=== PATIENT | female | born 1980 | race American Indian/Alaskan Native ===

== ENCOUNTER 2019-03-03 10:53 | Emergency (ER) | payer SELFPAY ==
[2019-03-03 11:23] VITALS: BP 139/91
--- NOTE | 2019-03-03 12:25 | Emergency Department Report ---
- General Chief Complaint: Upper Respiratory Infection Stated Complaint: HEADACHE/CHEST PAIN/COUGH/VOMITING/NAUSEA Time Seen by Provider: 03/03/19 12:19 Source: patient Mode of arrival: Ambulatory Limitations: No Limitations - History of Present Illness Initial Comments: Patient is a 38-year-old female with no significant past medical history. Patient presented to the ER complaining of cough, productive for greenish sputum. Patient stated the symptoms has been going on for 2 weeks. Patient denied any fever or chills. No shortness of breath or wheezing. MD Complaint: cough -: week(s) (2) - Related Data Allergies Allergy/AdvReac Type Severity Reaction Status Date / Time No Known Allergies Allergy Unverified 03/03/19 10:55 ED Review of Systems ROS: Stated complaint: HEADACHE/CHEST PAIN/COUGH/VOMITING/NAUSEA Other details as noted in HPI Comment: All other systems reviewed and negative Constitutional: denies: chills, fever Respiratory: cough. denies: shortness of breath, SOB with exertion, wheezing Cardiovascular: denies: chest pain, palpitations Gastrointestinal: denies: abdominal pain, nausea, vomiting ED Past Medical Hx - Past Medical History Previous Medical History?: No Hx Hypertension: No Hx Asthma: No - Surgical History Past Surgical History?: No - Social History Smoking Status: Never Smoker Substance Use Type: Alcohol ED Physical Exam - General Limitations: No Limitations General appearance: alert, in no apparent distress - Head Head exam: Present: atraumatic, normocephalic, normal inspection - Eye Eye exam: Present: normal appearance - ENT ENT exam: Present: normal exam, normal orophraynx, mucous membranes moist - Neck Neck exam: Present: normal inspection, full ROM. Absent: tenderness, meningismus, lymphadenopathy, thyromegaly - Respiratory Respiratory exam: Present: normal lung sounds bilaterally - Cardiovascular Cardiovascular Exam: Present: regular rate, normal rhythm, normal heart sounds - GI/Abdominal GI/Abdominal exam: Present: soft, normal bowel sounds. Absent: distended, tenderness, guarding, rebound, rigid, organomegaly, mass, bruit, pulsatile mass, hernia - Extremities Exam Extremities exam: Present: normal inspection, full ROM, normal capillary refill. Absent: tenderness, pedal edema, calf tenderness - Back Exam Back exam: Present: normal inspection, full ROM. Absent: tenderness, CVA tenderness (R), CVA tenderness (L), muscle spasm, paraspinal tenderness, vertebral tenderness, rash noted - Neurological Exam Neurological exam: Present: alert, oriented X3, CN II-XII intact, normal gait, reflexes normal - Psychiatric Psychiatric exam: Present: normal mood - Skin Skin exam: Present: warm, intact, normal color ED Course Vital Signs 03/03/19 11:21 Temperature 98.3 F Pulse Rate 89 Respiratory 20 Rate Blood Pressure 139/91 O2 Sat by Pulse 99 Oximetry ED Medical Decision Making - Radiology Data Radiology results: report reviewed - Medical Decision Making Patient is a 38-year-old female with no significant past medical history. Patient presented to the ER complaining of cough, productive for greenish sputum. Patient stated the symptoms has been going on for 2 weeks. Patient denied any fever or chills. No shortness of breath or wheezing. Chest x-ray is unremarkable. Patient given amoxicillin and Robitussin and advised to follow-up with her primary care physician in the next 2-3 days and to retained to the ER if symptoms are not improved. Critical care attestation.: If time is entered above; I have spent that time in minutes in the direct care of this critically ill patient, excluding procedure time. ED Disposition Clinical Impression: Acute bronchitis Disposition: DC-01 TO HOME OR SELFCARE Is pt being admited?: No Condition: Stable Instructions: Acute Bronchitis (ED) Referrals: PRIMARY CARE [Primary Care Provider] - 3-5 Days [facility] [Provider Group] - 3-5 Days
--- NOTE | 2019-03-03 12:58 | XRay Report ---
CHEST 2 VIEWS INDICATION: cough. COMPARISON: None FINDINGS: Support devices: None. Heart: Within normal limits. Lungs/pleura: No acute air space or interstitial disease. No pneumothorax. Additional findings: None. IMPRESSION: 1. No acute findings. Signer Name: Quinn Muñoz MD Signed: 03/03/2019 12:54 PM Workstation Name: [id number]
== END 2019-03-03 13:35 | disposition home or self-care (01) ==
LOC: ED 10:53
DX: J20.9 Acute bronchitis, unspecified (principal)
CPT/HCPCS: 71046; 99282

== ENCOUNTER 2020-12-19 01:14 | Emergency (ER) | payer SELFPAY ==
[2020-12-19] MEDS ORDERED: ASPIRIN 325 MG TAB PO ONE (02:43)
[2020-12-19 03:11] LABS: Basophils % (Auto) 0.5 % (0.0-1.8); Eosinophils # (Auto) 0.2 K/mm3 (0.0-0.4); Eosinophils % (Auto) 2.4 % (0.0-4.3); Hematocrit 36.4 % (30.3-42.9); Hemoglobin 12.3 gm/dl (10.1-14.3); Lymphocytes # (Auto) 3.3 K/mm3 (1.2-5.4); Lymphocytes % (Auto) 39.6 % (13.4-35.0); Mean Corpuscular HGB Conc 34 % (30-34); Mean Corpuscular Volume 81 fl (79-97); Monocytes # (Auto) 0.6 K/mm3 (0.0-0.8); Monocytes % (Auto) 6.7 % (0.0-7.3); Platelet Count 221 K/mm3 (140-440); Red Blood Count 4.48 M/mm3 (3.65-5.03); Red Cell Distribution Width 14.6 % (13.2-15.2)
--- NOTE | 2020-12-19 03:29 | Emergency Department Report ---
ED Chest Pain HPI - General Chief Complaint: Chest Pain Stated Complaint: HIGH BP PUI?: No Time Seen by Provider: 12/19/20 03:22 Source: patient Mode of arrival: Ambulatory Limitations: No Limitations - History of Present Illness Initial Comments: Patient is a 40-year-old female that presents emergency room with complaints of chest pain. Patient states her chest pain started a week ago. Patient states the pain is worsening. Patient states that her sister checked her blood pressure and it was high. Patient states she is just not who is greater than 164 systolic. Patient denies shortness of breath. Patient states the chest pain is in her upper chest and is bilateral. Patient dates pain is better with rest. Patient states the pain is worse with palpation and deep breath and movement. Patient denies fever and chills. Patient states that the chest pain is a 7 out of 10. Patient states the pain is nonradiating. Patient denies shortness of breath. Patient denies fever and chills. Patient denies cough. Patient denies recent travel. Patient denies recent international travel. Patient denies exposure to the novel coronavirus. Patient denies sick contacts. Patient denies fever and chills. Patient denies cough. Patient denies diarrhea. Patient denies coming in contact with anybody with symptoms of the novel coronavirus. MD Complaint: chest pain -: Sudden - Related Data Previous Rx's Medication Instructions Recorded Last Taken Type Albuterol Mdi (or & Nicu Only) 2 puff IH QID PRN #1 inhalation 03/03/19 Unknown Rx [ProAir HFA Inhaler] Amoxicillin [Amoxicillin TAB] 875 mg PO BID #14 tablet 03/03/19 Unknown Rx guaiFENesin [Robitussin] 5 ml PO TID PRN #100 ml 03/03/19 Unknown Rx Amoxicillin/Potassium Clav 1 each PO BID #20 tablet 03/29/19 Unknown Rx [Augmentin 875-125 Tablet] Fluticasone [Flonase] 1 spray NS QDAY #1 bottle 03/29/19 Unknown Rx Allergies Allergy/AdvReac Type Severity Reaction Status Date / Time No Known Allergies Allergy Verified 12/19/20 03:59 Heart Score - HEART Score History: Slightly suspicious EKG: Normal Age: < 45 Risk factors: No known risk factors Troponin: < normal limit HEART Score: 0 - EKG Read Time Time EKG Completed: 02:45 EKG Read Time: 02:49 ED Review of Systems ROS: Stated complaint: HIGH BP Other details as noted in HPI Constitutional: denies: chills, fever Eyes: denies: eye pain, eye discharge, vision change ENT: denies: ear pain, throat pain Respiratory: denies: cough, shortness of breath, wheezing Cardiovascular: as per HPI, chest pain. denies: palpitations Endocrine: no symptoms reported Gastrointestinal: denies: abdominal pain, nausea, diarrhea Genitourinary: denies: urgency, dysuria, discharge Musculoskeletal: denies: back pain, joint swelling, arthralgia Skin: denies: rash, lesions Neurological: denies: headache, weakness, paresthesias Psychiatric: denies: anxiety, depression Hematological/Lymphatic: denies: easy bleeding, easy bruising ED Past Medical Hx - Past Medical History Previous Medical History?: Yes Hx Hypertension: Yes Hx Asthma: No - Surgical History Past Surgical History?: No - Family History Family history: no significant - Social History Smoking Status: Current Every Day Smoker Substance Use Type: None - Medications Home Medications: Home Medications Medication Instructions Recorded Confirmed Last Taken Type Albuterol Mdi (or & Nicu Only) 2 puff IH QID PRN #1 inhalation 03/03/19 Unknown Rx [ProAir HFA Inhaler] Amoxicillin [Amoxicillin TAB] 875 mg PO BID #14 tablet 03/03/19 Unknown Rx guaiFENesin [Robitussin] 5 ml PO TID PRN #100 ml 03/03/19 Unknown Rx Amoxicillin/Potassium Clav 1 each PO BID #20 tablet 03/29/19 Unknown Rx [Augmentin 875-125 Tablet] Fluticasone [Flonase] 1 spray NS QDAY #1 bottle 03/29/19 Unknown Rx ED Physical Exam - General Limitations: No Limitations General appearance: alert, in no apparent distress - Head Head exam: Present: atraumatic, normocephalic - Eye Eye exam: Present: normal appearance - ENT ENT exam: Present: mucous membranes moist - Neck Neck exam: Present: normal inspection - Respiratory Respiratory exam: Present: normal lung sounds bilaterally, chest wall tenderness (Palpation of the upper chest wall reproduces symptoms. Patient has tenderness to the bilateral upper chest.). Absent: respiratory distress - Cardiovascular Cardiovascular Exam: Present: regular rate, normal rhythm. Absent: systolic murmur, diastolic murmur, rubs, gallop - GI/Abdominal GI/Abdominal exam: Present: soft, normal bowel sounds - Extremities Exam Extremities exam: Present: normal inspection - Back Exam Back exam: Present: normal inspection - Neurological Exam Neurological exam: Present: alert, oriented X3 - Psychiatric Psychiatric exam: Present: normal affect, normal mood - Skin Skin exam: Present: warm, dry, intact, normal color. Absent: rash ED Course Vital Signs 12/19/20 12/19/20 02:40 04:00 Temperature 98.6 F Pulse Rate 95 H 88 Respiratory 16 16 Rate Blood Pressure 154/100 Blood Pressure 146/89 [Left] O2 Sat by Pulse 100 100 Oximetry - Reevaluation(s) Reevaluation #1: Patient's initial blood pressure was elevated however the patient's blood pressure has normalized. Patient can follow-up with her primary care for management of her blood pressure. Since the patient presents emergency with complaints of chest pain, the patient's information was faxed over to her local cardiology group for further evaluation and treatment and risk stratification of her chest pain. I discussed all results and clinical findings with patient. I discussed plan of care with patient. Patient agrees with plan of care. Patient is stable for discharge. Patient will be discharged home. Patient given discharge instructions. Patient voiced understanding of discharge instructions. 12/19/20 04:24 DARIAN score - Darian Score Age > 65: (0) No Aspirin use within the Past 7 Days: (0) No 3 or more CAD Risk Factors: (0) No 2 or more Angina events in past 24 hrs: (0) No Known CAD with more than 50% Stenosis: (0) No Elevated Cardiac Markers: (0) No ST Deviation Greater than 0.5mm: (0) No DARIAN Score: 0 ED Medical Decision Making - Lab Data Result diagrams: 12/19/20 02:49 12/19/20 02:49 - EKG Data -: EKG Interpreted by Me EKG shows normal: sinus rhythm, axis, intervals, QRS complexes, ST-T waves Rate: normal - Radiology Data Radiology results: report reviewed, image reviewed interpreted by me: Chest x-ray: No pneumonia, no pneumothorax, no foreign body, no osseous findings, no acute findings - Medical Decision Making Patient is a 40-year-old female who presents emergency room with complaints of presents emergency room for suicidal worsening of her chest pain and bilateral upper chest pain for 1 week. Patient her blood pressure was elevated at home. Patient has history of hypertension but is not taking any medications. Patient blood pressure normalized on its own. Patient's chest pain is secondary to her chest wall and is musculoskeletal. Patient had labs done which were essentially unremarkable. Patient can follow-up with her primary care for management of her chest pain and her hypertension. Patient information sent over to her local cardiology group for further evaluation treatment of her chest pain and risk stratification of her chest pain. Patient is stable for discharge. Patient not require inpatient services. Patient's chest pain is low risk. Patient states syncope work-up as outpatient. - Differential Diagnosis Chest pain, Chest wall strain, chest wall pain, hypertension Critical care attestation.: If time is entered above; I have spent that time in minutes in the direct care of this critically ill patient, excluding procedure time. ED Disposition Clinical Impression: Chest pain Qualifiers: Chest pain type: unspecified Qualified Code(s): R07.9 - Chest pain, unspecified Chest wall muscle strain Qualifiers: Encounter type: initial encounter Qualified Code(s): S29.011A - Strain of muscle and tendon of front wall of thorax, initial encounter Hypertension Qualifiers: Hypertension type: essential hypertension Qualified Code(s): I10 - Essential (primary) hypertension Disposition: - TO HOME OR SELFCARE Is pt being admited?: No Does the pt Need Aspirin: No Condition: Stable Instructions: Nonspecific Chest Pain, Adult, Hypertension (ED), Chest Wall Pain, Hypertension, Adult, Preventing Hypertension, Muscle Strain, [id number], Hypertension, Adult, [id number] Additional Instructions: Patient to follow-up with primary care in 2 to 3 days. Patient to follow-up with car barn laborer in 2 to 3 days. Patient to rest. Patient to increase water. Patient to avoid strenuous exercise or heavy lifting until cleared by car barn laborer. Patient to monitor blood pressure at home. Patient to keep a blood pressure log at home. Patient to take blood pressure log to all follow-up appointments. Patient to take Tylenol or ibuprofen as needed for pain. Patient to return to the ER if condition worsens, changes or new symptoms arise. Referrals: AYAKA SON MD [Staff Physician] - 2-3 Days MADAI LANCE MD [Staff Physician] - 2-3 Days CHIARA MINAYA MD [Staff Physician] - 2-3 Days Time of Disposition: 04:29
[2020-12-19 03:30] LABS: Alanine Aminotransferase 14 units/L (7-56); Albumin 4.5 g/dL (3.9-5); Blood Urea Nitrogen 10 mg/dL (7-17); Calcium 9.4 mg/dL (8.4-10.2); Hemolysis Index 9
[2020-12-19 03:33] LABS: BUN/Creatinine Ratio 17
--- NOTE | 2020-12-19 04:40 | XRay Report ---
CHEST 2 VIEWS, 12/19/2020 2:58 AM INDICATION: Chest pain COMPARISON: 03/03/2019 FINDINGS: Support devices: None. Heart: The cardiac silhouette is normal in size. Lungs/pleura: The lungs are clear of focal airspace disease or significant pleural effusion. Additional findings: No significant acute abnormality. IMPRESSION: 1. No evidence of acute cardiopulmonary process. Signer Name: Anne Bright MD Signed: 12/19/2020 4:36 AM Workstation Name: [id number]
[2020-12-19 05:15] VITALS: BP 112/58
--- NOTE | 2020-12-23 12:56 | Electrocardiograph Report ---
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
== END 2020-12-19 05:20 | disposition home or self-care (01) ==
LOC: ED 01:14
DX: S29.011A Strain of muscle and tendon of front wall of thorax, initial encounter (principal); I10 Essential (primary) hypertension; F17.200 Nicotine dependence, unspecified, uncomplicated; Z98.890 Other specified postprocedural states; Z79.899 Other long term (current) drug therapy; X58.XXXA Exposure to other specified factors, initial encounter; Y93.89 Activity, other specified; Y92.89 Other specified places as the place of occurrence of the external cause; Y99.8 Other external cause status
CPT/HCPCS: 36415; 71046; 80053; 84484; 84703; 85025; 93005; 99284

== ENCOUNTER 2021-05-19 14:54 | Emergency (ER) | payer SELFPAY ==
[2021-05-19 14:59] VITALS: BP 155/94
[2021-05-19 15:56] LABS: Basophils % (Auto) 0.3 % (0.0-1.8); Eosinophils # (Auto) 0.2 K/mm3 (0.0-0.4); Hematocrit 37.6 % (30.3-42.9); Lymphocytes # (Auto) 1.1 K/mm3 (1.2-5.4); Lymphocytes % (Auto) 11.8 % (13.4-35.0); Mean Corpuscular HGB Conc 32 % (30-34); Mean Corpuscular Volume 82 fl (79-97); Monocytes # (Auto) 0.4 K/mm3 (0.0-0.8); Monocytes % (Auto) 4.7 % (0.0-7.3); Platelet Count 211 K/mm3 (140-440); Red Blood Count 4.61 M/mm3 (3.65-5.03); Red Cell Distribution Width 15.4 % (13.2-15.2)
[2021-05-19 16:02] LABS: Alanine Aminotransferase 18 units/L (7-56); Albumin 4.3 g/dL (3.9-5); Blood Urea Nitrogen 9 mg/dL (7-17); Calcium 9.2 mg/dL (8.4-10.2); Hemolysis Index 3
[2021-05-19 16:04] LABS: BUN/Creatinine Ratio 18
[2021-05-19] MEDS ORDERED: KETOROLAC 60 MG/2 ML INJ IM ONE (16:07)
[2021-05-19] MEDS ORDERED: dexAMETHasone 20 MG/5 ML VIAL IM ONE (16:07)
--- NOTE | 2021-05-19 16:45 | XRay Report ---
CHEST 2 VIEWS INDICATION: chest pain, SOB. COMPARISON: 12/19/2020 FINDINGS: Support devices: None. Heart: Within normal limits. Lungs/Pleura: No acute air space or interstitial disease. No significant pleural effusion. IMPRESSION: No acute findings. Signer Name: Jake Huynh MD Signed: 05/19/2021 4:40 PM Workstation Name: [id number]
--- NOTE | 2021-05-19 17:19 | Emergency Department Report ---
ED Shortness of Breath HPI - General Chief Complaint: Chest Pain Stated Complaint: CHESTPAIN/SORETHROAT/BODYACHES/ASTON Time Seen by Provider: 05/19/21 16:02 Source: patient Mode of arrival: Ambulatory Limitations: No Limitations - History of Present Illness Initial Comments: Patient is a 40-year-old F Filipino female who is presenting with to some chest discomfort when she coughs. Cough is productive of some clear sputum. Patient also has some mild shortness of breath body aches and had a fever yesterday. Patient symptoms of been present for approximately 3 days. Denies nausea vomiting or diarrhea or abdominal pain. Patient has not been vaccinated against COVID-19. - Related Data Previous Rx's Medication Instructions Recorded Last Taken Type Albuterol Mdi (or & Nicu Only) 2 puff IH QID PRN #1 inhalation 03/03/19 Unknown Rx [ProAir HFA Inhaler] Amoxicillin [Amoxicillin TAB] 875 mg PO BID #14 tablet 03/03/19 Unknown Rx guaiFENesin [Robitussin] 5 ml PO TID PRN #100 ml 03/03/19 Unknown Rx Amoxicillin/Potassium Clav 1 each PO BID #20 tablet 03/29/19 Unknown Rx [Augmentin 875-125 Tablet] Fluticasone [Flonase] 1 spray NS QDAY #1 bottle 03/29/19 Unknown Rx Benzonatate [Tessalon Perles] 100 mg PO Q8HR #10 capsule 05/19/21 Unknown Rx Dexamethasone [Decadron] 6 mg PO DAILY #5 tablet 05/19/21 Unknown Rx HYDROcodone/APAP 5-325 [[place] 1 each PO Q6HR PRN #14 tablet 05/19/21 Unknown Rx 5/325] Ondansetron [Zofran Odt] 4 mg PO Q8HR #10 tab.rapdis 05/19/21 Unknown Rx Allergies Allergy/AdvReac Type Severity Reaction Status Date / Time No Known Allergies Allergy Verified 12/19/20 03:59 ED Review of Systems ROS: Stated complaint: CHESTPAIN/SORETHROAT/BODYACHES/ASTON Other details as noted in HPI Comment: All other systems reviewed and negative ED Past Medical Hx - Past Medical History Hx Hypertension: Yes Hx Asthma: No - Social History Smoking Status: Current Every Day Smoker Substance Use Type: None - Medications Home Medications: Home Medications Medication Instructions Recorded Confirmed Last Taken Type Albuterol Mdi (or & Nicu Only) 2 puff IH QID PRN #1 inhalation 03/03/19 Unknown Rx [ProAir HFA Inhaler] Amoxicillin [Amoxicillin TAB] 875 mg PO BID #14 tablet 03/03/19 Unknown Rx guaiFENesin [Robitussin] 5 ml PO TID PRN #100 ml 03/03/19 Unknown Rx Amoxicillin/Potassium Clav 1 each PO BID #20 tablet 03/29/19 Unknown Rx [Augmentin 875-125 Tablet] Fluticasone [Flonase] 1 spray NS QDAY #1 bottle 03/29/19 Unknown Rx Benzonatate [Tessalon Perles] 100 mg PO Q8HR #10 capsule 05/19/21 Unknown Rx Dexamethasone [Decadron] 6 mg PO DAILY #5 tablet 05/19/21 Unknown Rx HYDROcodone/APAP 5-325 [[place] 1 each PO Q6HR PRN #14 tablet 05/19/21 Unknown Rx 5/325] Ondansetron [Zofran Odt] 4 mg PO Q8HR #10 tab.rapdis 05/19/21 Unknown Rx ED Physical Exam - General Limitations: No Limitations General appearance: alert, in no apparent distress - Head Head exam: Present: atraumatic, normocephalic - Eye Eye exam: Present: normal appearance - ENT ENT exam: Present: mucous membranes moist - Neck Neck exam: Present: normal inspection - Respiratory Respiratory exam: Present: normal lung sounds bilaterally. Absent: respiratory distress, wheezes, rales, rhonchi - Cardiovascular Cardiovascular Exam: Present: regular rate, normal rhythm, normal heart sounds. Absent: systolic murmur, diastolic murmur, rubs, gallop - GI/Abdominal GI/Abdominal exam: Present: soft, normal bowel sounds. Absent: distended, tenderness, guarding, rebound, rigid - Extremities Exam Extremities exam: Present: normal inspection - Back Exam Back exam: Present: normal inspection - Neurological Exam Neurological exam: Present: alert, oriented X3 - Psychiatric Psychiatric exam: Present: normal affect, normal mood - Skin Skin exam: Present: warm, dry, intact, normal color. Absent: rash ED Course Vital Signs 05/19/21 14:58 Temperature 97.9 F Pulse Rate 109 H Respiratory 20 Rate Blood Pressure 155/94 O2 Sat by Pulse 99 Oximetry ED Medical Decision Making - Lab Data Result diagrams: 05/19/21 15:25 05/19/21 15:25 Lab Results 05/19/21 05/19/21 05/19/21 Range/Units 15:25 15:25 15:25 WBC 9.3 (4.5-11.0) K/mm3 RBC 4.61 (3.65-5.03) M/mm3 Hgb 12.0 (10.1-14.3) gm/dl Hct 37.6 (30.3-42.9) % MCV 82 (79-97) fl MCH 26 L (28-32) pg MCHC 32 (30-34) % RDW 15.4 H (13.2-15.2) % Plt Count 211 (140-440) K/mm3 Lymph % (Auto) 11.8 L (13.4-35.0) % [place] % (Auto) 4.7 (0.0-7.3) % Eos % (Auto) 2.0 (0.0-4.3) % Baso % (Auto) 0.3 (0.0-1.8) % Lymph # (Auto) 1.1 L (1.2-5.4) K/mm3 [place] # (Auto) 0.4 (0.0-0.8) K/mm3 Eos # (Auto) 0.2 (0.0-0.4) K/mm3 Baso # (Auto) 0.0 (0.0-0.1) K/mm3 Seg Neutrophils % 81.2 H (40.0-70.0) % Seg Neutrophils # 7.5 (1.8-7.7) K/mm3 Sodium 140 (137-145) mmol/L Potassium 4.0 (3.6-5.0) mmol/L Chloride 104.2 (98-107) mmol/L Carbon Dioxide 22 (22-30) mmol/L Anion Gap 18 mmol/L BUN 9 (7-17) mg/dL Creatinine 0.5 L (0.6-1.2) mg/dL Estimated GFR > 60 ml/min BUN/Creatinine Ratio 18 % Glucose 104 H (65-100) mg/dL Calcium 9.2 (8.4-10.2) mg/dL Total Bilirubin 0.30 (0.1-1.2) mg/dL AST 20 (5-40) units/L ALT 18 (7-56) units/L Alkaline Phosphatase 64 (35-129) units/L Troponin T < 0.010 (0.00-0.029) ng/mL Total Protein 7.2 (6.3-8.2) g/dL Albumin 4.3 (3.9-5) g/dL Albumin/Globulin Ratio 1.5 % Lipase 22 (13-60) units/L HCG, Qual Negative (Negative) - EKG Data -: EKG Interpreted by Nh EKG shows normal: sinus rhythm, axis, intervals, QRS complexes, ST-T waves Rate: normal - EKG Data Interpretation: normal EKG - Radiology Data Ordering Physician: CADEN HENRY Date of Service: 05/19/21 Procedure(s): XR chest routine 2V Accession Number(s): [id number] cc: CADEN HENRY Fluoro Time In Minutes: CHEST 2 VIEWS INDICATION: chest pain, SOB. COMPARISON: 12/19/2020 FINDINGS: Support devices: None. Heart: Within normal limits. Lungs/Pleura: No acute air space or interstitial disease. No significant pleural effusion. IMPRESSION: No acute findings. Signer Name: Jake Huynh MD Signed: 05/19/2021 4:40 PM Workstation Name: [id number] Transcribed By: ES Dictated By: Jake Huynh MD Electronically Authenticated By: Jake Huynh MD Signed Date/Time: 05/19/21 1640 - Medical Decision Making Patient is a 40-year-old F Filipino female was presented with Covid type symptoms. Patient will be given medication for symptomatic relief. O2 sat and chest x-ray are within normal limits. Patient stable for discharge. Critical care attestation.: If time is entered above; I have spent that time in minutes in the direct care of this critically ill patient, excluding procedure time. ED Disposition Clinical Impression: Suspected COVID-19 virus infection Disposition: 01 HOME / SELF CARE / HOMELESS Is pt being admited?: No Does the pt Need Aspirin: No Condition: Stable Instructions: Acute Bronchitis, Pediatric, COVID-19 Frequently Asked Questions Referrals: CHARLENE ALSTON MD [Referring] - 3-5 Days Time of Disposition: 17:16
--- NOTE | 2021-05-20 13:03 | Electrocardiograph Report ---
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
== END 2021-05-19 17:45 | disposition home or self-care (01) ==
LOC: ED 14:54
DX: R05.9 Cough, unspecified (principal); R06.02 Shortness of breath; M79.18 Myalgia, other site; I10 Essential (primary) hypertension; F17.200 Nicotine dependence, unspecified, uncomplicated
CPT/HCPCS: 36415; 71046; 80053; 83690; 84484; 84703; 85025; 93005; 96372; 99283; J1100; J1885

== ENCOUNTER 2021-06-25 02:44 | Emergency (ER) | payer SELFPAY ==
--- NOTE | 2021-06-25 08:02 | Emergency Department Report ---
Minor Respiratory - HPI Chief Complaint: Sore Throat Stated Complaint: SORE THROAT Duration: Today Minor Respiratory: Yes Sore Throat, Yes Able to Tolerate Fluids, No Rhinorrhea, No Ear Pain, No Cough, No Sick Contacts, No Hemoptysis, No Chest Pain, No Shortness of Breath, No Fever Other History: Chief complaint: Sore throat. HPI: This is a 41-year-old female with history of tobacco dependence and hypertension who presents with sore throat which began this morning. Mild pain with swallowing. She has mild headache. She denies fever. Denies cough. Denies shortness of breath. She noticed "white stuff" on her tonsils. ED Review of Systems ROS: Stated complaint: SORE THROAT Other details as noted in HPI Constitutional: denies: chills, fever, malaise ENT: throat pain. denies: dental pain, congestion Respiratory: denies: cough, shortness of breath Cardiovascular: denies: chest pain Gastrointestinal: denies: abdominal pain, nausea, vomiting Neurological: headache ED Past Medical Hx - Past Medical History Previous Medical History?: Yes Hx Hypertension: Yes Hx Asthma: No - Surgical History Past Surgical History?: No - Social History Smoking Status: Current Every Day Smoker Substance Use Type: None - Medications Home Medications: Home Medications Medication Instructions Recorded Confirmed Last Taken Type Albuterol Mdi (or & Nicu Only) 2 puff IH QID PRN #1 inhalation 03/03/19 Unknown Rx [ProAir HFA Inhaler] Amoxicillin [Amoxicillin TAB] 875 mg PO BID #14 tablet 03/03/19 Unknown Rx guaiFENesin [Robitussin] 5 ml PO TID PRN #100 ml 03/03/19 Unknown Rx Amoxicillin/Potassium Clav 1 each PO BID #20 tablet 03/29/19 Unknown Rx [Augmentin 875-125 Tablet] Fluticasone [Flonase] 1 spray NS QDAY #1 bottle 03/29/19 Unknown Rx Benzonatate [Tessalon Perles] 100 mg PO Q8HR #10 capsule 05/19/21 Unknown Rx Dexamethasone [Decadron] 6 mg PO DAILY #5 tablet 05/19/21 Unknown Rx HYDROcodone/APAP 5-325 [[place] 1 each PO Q6HR PRN #14 tablet 05/19/21 Unknown Rx 5/325] Ondansetron [Zofran Odt] 4 mg PO Q8HR #10 tab.xiomaradis 05/19/21 Unknown Rx Minor Respiratory Exam - Exam General: Vital signs noted. No distress. Alert and acting appropriately. HEENT: Yes Pharyngeal Erythema (Bilateral tonsillar edema with exudate), Yes Pharyngeal Exudates, Yes Moist Mucous Membranes, No Rhinorrhea, No Conjuctival Injection Neck: Yes Adenopathy, No Supple Lungs: Yes Good Air Exchange, No Wheezes, No Ronchi, No Stridor, No Cough, No Labored Respirations Neurologic: Alert and oriented, no deficits. Musculoskeletal: Unremarkable. ED Course Vital Signs 06/25/21 02:47 Temperature 98.0 F Pulse Rate 77 Respiratory 18 Rate Blood Pressure 172/97 O2 Sat by Pulse 100 Oximetry ED Medical Decision Making - Medical Decision Making Acute streptococcal pharyngitis: Unable to obtain rapid strep due to limitations in our laboratory. Clinical diagnosis of streptococcal pharyngitis made. Rapid strep ordered, result unavailable. Patient received Bicillin LA and Decadron IM In the emergency department. Critical care attestation.: If time is entered above; I have spent that time in minutes in the direct care of this critically ill patient, excluding procedure time. ED Disposition Clinical Impression: Acute streptococcal pharyngitis Disposition: 01 HOME / SELF CARE / HOMELESS Is pt being admited?: No Does the pt Need Aspirin: No Condition: Stable Instructions: Strep Throat, Adult Referrals: CHIARA MINAYA MD [Staff Physician] - as needed Forms: Work/School Release Form(ED)
[2021-06-25] MEDS ORDERED: PENICILLIN G BENZATHINE 1.2 MILLION UNIT/2 ML INJ IM ONE (08:27)
[2021-06-25] MEDS ORDERED: dexAMETHasone 20 MG/5 ML VIAL IM ONE (08:27)
[2021-06-25] MEDS ORDERED: IBUPROFEN 800 MG TAB PO ONE (08:29)
[2021-06-25 08:57] VITALS: BP 136/72
== END 2021-06-25 08:58 | disposition home or self-care (01) ==
LOC: ED 02:44
DX: J02.0 Streptococcal pharyngitis (principal); B95.5 Unspecified streptococcus as the cause of diseases classified elsewhere; I10 Essential (primary) hypertension; F17.200 Nicotine dependence, unspecified, uncomplicated; Z79.899 Other long term (current) drug therapy
CPT/HCPCS: 87116; 87430; 96372; 99283; J0561; J1100

== ENCOUNTER 2022-01-05 19:56 | Emergency (ER) | payer SELFPAY ==
[2022-01-05 20:47] VITALS: BP 141/93
[2022-01-06] MEDS ORDERED: ONDANSETRON 4 MG ODT TAB PO ONE (01:00)
[2022-01-06 01:14] LABS: Basophils % (Auto) 0.6 % (0.0-1.8); Eosinophils # (Auto) 0.2 K/mm3 (0.0-0.4); Eosinophils % (Auto) 2.1 % (0.0-4.3); Hematocrit 39.8 % (30.3-42.9); Lymphocytes # (Auto) 2.9 K/mm3 (1.2-5.4); Lymphocytes % (Auto) 34.5 % (13.4-35.0); Mean Corpuscular HGB Conc 33 % (30-34); Mean Corpuscular Volume 81 fl (79-97); Monocytes # (Auto) 0.7 K/mm3 (0.0-0.8); Monocytes % (Auto) 8.5 % (0.0-7.3); Platelet Count 227 K/mm3 (140-440); Red Blood Count 4.93 M/mm3 (3.65-5.03); Red Cell Distribution Width 14.9 % (13.2-15.2)
[2022-01-06 01:36] LABS: Alanine Aminotransferase 19 units/L (7-56); Albumin 4.3 g/dL (3.9-5); Blood Urea Nitrogen 10 mg/dL (7-17); Calcium 9.6 mg/dL (8.4-10.2); Hemolysis Index 10
[2022-01-06 01:41] LABS: BUN/Creatinine Ratio 17
[2022-01-06 01:42] LABS: Bilirubin,Urine NEG (Negative); Blood,Urine NEG (Negative); Color,Urine Yellow (Yellow); Protein,Urine <15 mg/dL mg/dL (Negative); Urobilinogen,Urine < 2.0 mg/dL (<2.0)
--- NOTE | 2022-01-06 01:44 | Emergency Department Report ---
ED General Adult HPI - General Chief complaint: Nausea/Vomiting/Diarrhea Stated complaint: EXPOSED TO COVID Time Seen by Provider: 01/06/22 00:56 Source: patient Mode of arrival: Ambulatory Limitations: No Limitations - History of Present Illness Initial comments: Patient 41-year-old female who presents for intermittent abdominal pain and nausea vomiting diarrhea x2 days. States she lives with sister who is COVID- positive. Patient denies shortness of breath there is no fever or chills at this time. Patient is tolerating p.o. intake. Last nausea vomiting was yesterday. Patient states she has had 1 COVID vaccination 2 weeks ago. Primary complaint today is diarrhea. Symptoms are exacerbated by p.o. intake. Symptoms are relieved by nothing tried. Patient appears nontoxic there is no respiratory distress. - Related Data Previous Rx's Medication Instructions Recorded Last Taken Type Albuterol Mdi (or & Nicu Only) 2 puff IH QID PRN #1 inhalation 03/03/19 Unknown Rx [ProAir HFA Inhaler] Amoxicillin [Amoxicillin TAB] 875 mg PO BID #14 tablet 03/03/19 Unknown Rx guaiFENesin [Robitussin] 5 ml PO TID PRN #100 ml 03/03/19 Unknown Rx Amoxicillin/Potassium Clav 1 each PO BID #20 tablet 03/29/19 Unknown Rx [Augmentin 875-125 Tablet] Fluticasone [Flonase] 1 spray NS QDAY #1 bottle 03/29/19 Unknown Rx Benzonatate [Tessalon Perles] 100 mg PO Q8HR #10 capsule 05/19/21 Unknown Rx Dexamethasone [Decadron] 6 mg PO DAILY #5 tablet 05/19/21 Unknown Rx HYDROcodone/APAP 5-325 [[place] 1 each PO Q6HR PRN #14 tablet 05/19/21 Unknown Rx 5/325] Ondansetron [Zofran Odt] 4 mg PO Q8HR #10 tab.rapdis 05/19/21 Unknown Rx Fluconazole [Diflucan TAB] 200 mg PO QDAY #1 tablet 01/06/22 Unknown Rx Ibuprofen [Motrin 800 MG tab] 800 mg PO Q8HR PRN #30 tablet 01/06/22 Unknown Rx Ondansetron [Zofran Odt] 4 mg PO Q8HR #12 tab.rapdis 01/06/22 Unknown Rx cephALEXin [Keflex] 500 mg PO BID 7 Days #14 cap 01/06/22 Unknown Rx Allergies Allergy/AdvReac Type Severity Reaction Status Date / Time No Known Allergies Allergy Verified 12/19/20 03:59 ED Review of Systems ROS: Stated complaint: EXPOSED TO COVID Other details as noted in HPI Constitutional: denies: chills, fever Eyes: denies: eye pain, eye discharge, vision change ENT: denies: ear pain, throat pain Respiratory: denies: cough, shortness of breath, wheezing Cardiovascular: denies: chest pain, palpitations Endocrine: no symptoms reported Gastrointestinal: abdominal pain, nausea, vomiting, diarrhea. denies: constipation, melena Genitourinary: denies: urgency, dysuria, frequency, hematuria, discharge Musculoskeletal: denies: back pain, joint swelling, arthralgia Skin: denies: rash, lesions Neurological: denies: headache, weakness, numbness, paresthesias, confusion, vertigo Psychiatric: denies: anxiety, depression Hematological/Lymphatic: denies: easy bleeding, easy bruising ED Past Medical Hx - Past Medical History Hx Hypertension: Yes Hx Asthma: No - Social History Smoking Status: Current Every Day Smoker Substance Use Type: None - Medications Home Medications: Home Medications Medication Instructions Recorded Confirmed Last Taken Type Albuterol Mdi (or & Nicu Only) 2 puff IH QID PRN #1 inhalation 03/03/19 Unknown Rx [ProAir HFA Inhaler] Amoxicillin [Amoxicillin TAB] 875 mg PO BID #14 tablet 03/03/19 Unknown Rx guaiFENesin [Robitussin] 5 ml PO TID PRN #100 ml 03/03/19 Unknown Rx Amoxicillin/Potassium Clav 1 each PO BID #20 tablet 03/29/19 Unknown Rx [Augmentin 875-125 Tablet] Fluticasone [Flonase] 1 spray NS QDAY #1 bottle 03/29/19 Unknown Rx Benzonatate [Tessalon Perles] 100 mg PO Q8HR #10 capsule 05/19/21 Unknown Rx Dexamethasone [Decadron] 6 mg PO DAILY #5 tablet 05/19/21 Unknown Rx HYDROcodone/APAP 5-325 [[place] 1 each PO Q6HR PRN #14 tablet 05/19/21 Unknown Rx 5/325] Ondansetron [Zofran Odt] 4 mg PO Q8HR #10 tab.rapdis 05/19/21 Unknown Rx Fluconazole [Diflucan TAB] 200 mg PO QDAY #1 tablet 01/06/22 Unknown Rx Ibuprofen [Motrin 800 MG tab] 800 mg PO Q8HR PRN #30 tablet 01/06/22 Unknown Rx Ondansetron [Zofran Odt] 4 mg PO Q8HR #12 tab.rapdis 01/06/22 Unknown Rx cephALEXin [Keflex] 500 mg PO BID 7 Days #14 cap 01/06/22 Unknown Rx ED Physical Exam - General Limitations: No Limitations General appearance: alert, in no apparent distress - Head Head exam: Present: normocephalic, normal inspection - Eye Eye exam: Present: normal appearance, EOMI Pupils: Present: normal accommodation - ENT ENT exam: Present: normal orophraynx, mucous membranes moist - Neck Neck exam: Present: normal inspection, full ROM. Absent: tenderness, lymphadenopathy - Respiratory Respiratory exam: Present: normal lung sounds bilaterally. Absent: respiratory distress, wheezes, stridor, chest wall tenderness - Cardiovascular Cardiovascular Exam: Present: regular rate, normal rhythm, normal heart sounds. Absent: systolic murmur, diastolic murmur, rubs, gallop - GI/Abdominal GI/Abdominal exam: Present: soft, normal bowel sounds. Absent: distended, tenderness, guarding, rebound, rigid, bruit, hernia - Rectal Rectal exam: Present: deferred - Extremities Exam Extremities exam: Present: normal inspection, full ROM, normal capillary refill - Back Exam Back exam: Present: normal inspection, full ROM. Absent: CVA tenderness (R), CVA tenderness (L) - Neurological Exam Neurological exam: Present: alert, oriented X3, CN II-XII intact - Expanded Neurological Exam Expanded Patient oriented to: Present: person, place, time - Psychiatric Psychiatric exam: Present: normal affect, normal mood - Skin Skin exam: Present: warm, dry, intact, normal color. Absent: rash ED Course Vital Signs 01/05/22 20:02 Temperature 98.4 F Pulse Rate 87 Respiratory 18 Rate Blood Pressure 141/93 O2 Sat by Pulse 98 Oximetry ED Medical Decision Making - Lab Data Result diagrams: 01/06/22 01:01 01/06/22 01:01 Labs 01/06/22 01/06/22 01/06/22 01:01 01:01 01:01 WBC 8.5 RBC 4.93 Hgb 13.0 Hct 39.8 MCV 81 MCH 26 L MCHC 33 RDW 14.9 Plt Count 227 Lymph % (Auto) 34.5 [place] % (Auto) 8.5 H Eos % (Auto) 2.1 Baso % (Auto) 0.6 Lymph # (Auto) 2.9 [place] # (Auto) 0.7 Eos # (Auto) 0.2 Baso # (Auto) 0.0 Seg Neutrophils % 54.3 Seg Neutrophils # 4.6 Sodium 140 Potassium 4.2 Chloride 105.5 Carbon Dioxide 22 Anion Gap 17 BUN 10 Creatinine 0.6 Estimated GFR > 60 BUN/Creatinine Ratio 17 Glucose 81 Calcium 9.6 Total Bilirubin 0.30 AST 24 ALT 19 Alkaline Phosphatase 62 Total Protein 7.6 Albumin 4.3 Albumin/Globulin Ratio 1.3 HCG, Quant < 2 Urine Bilirubin 01/06/22 01:24 WBC RBC Hgb Hct MCV MCH MCHC RDW Plt Count Lymph % (Auto) Creek % (Auto) Eos % (Auto) Baso % (Auto) Lymph # (Auto) [place] # (Auto) Eos # (Auto) Baso # (Auto) Seg Neutrophils % Seg Neutrophils # Sodium Potassium Chloride Carbon Dioxide Anion Gap BUN Creatinine Estimated GFR BUN/Creatinine Ratio Glucose Calcium Total Bilirubin AST ALT Alkaline Phosphatase Total Protein Albumin Albumin/Globulin Ratio HCG, Quant Urine Bilirubin Neg - Radiology Data Radiology results: report reviewed, image reviewed - Medical Decision Making Labs noted above UA noted we will treat for UTI, sounds are clear throughout respirations are even and nonlabored. Patient tolerating p.o. intake without nausea vomiting at this time. Patient will be DC'd home in stable condition at this time. Patient will will follow-up with primary care doctor in 2 to 3 days. Patient will return to emergency department should symptoms worsen. Critical care attestation.: If time is entered above; I have spent that time in minutes in the direct care of this critically ill patient, excluding procedure time. ED Disposition Clinical Impression: Viral syndrome, Nausea vomiting and diarrhea, Exposure to COVID-19 virus UTI (urinary tract infection) Qualifiers: Urinary tract infection type: acute cystitis Hematuria presence: without hematuria Qualified Code(s): N30.00 - Acute cystitis without hematuria Disposition: HOME / SELF CARE / HOMELESS Is pt being admited?: No Does the pt Need Aspirin: No Condition: Stable Instructions: Food Choices to Help Relieve Diarrhea, Adult, Nausea and Vo miting, Adult, [id number], Urinary Tract Infection, Adult, [id number], Hand Washing Additional Instructions: Take medications as prescribed, hydrate as directed. Follow-up with your doctor in 2 to 3 days. Return to emergency department should symptoms worsen or development of shortness of breath. Prescriptions: Fluconazole [Diflucan TAB] 200 mg PO QDAY #1 tablet cephALEXin [Keflex] 500 mg PO BID 7 Days #14 cap Ibuprofen [Motrin 800 MG tab] 800 mg PO Q8HR PRN #30 tablet PRN Reason: pain fever Ondansetron [Zofran Odt] 4 mg PO Q8HR #12 tab.[email or web address] Referrals: BENITO GARRIDO MD [Staff Physician] - 3-5 Days Forms: Work/School Release Form(ED) Time of Disposition: 02:25
[2022-01-06 02:01] LABS: Bacteria,Urine 1+ /HPF (Negative); Mucus,Urine FEW /HPF
== END 2022-01-06 03:14 | disposition home or self-care (01) ==
LOC: ED 19:56
DX: B34.9 Viral infection, unspecified (principal); N39.0 Urinary tract infection, site not specified; R11.2 Nausea with vomiting, unspecified; R19.7 Diarrhea, unspecified; Z20.822 Contact with and (suspected) exposure to COVID-19; I10 Essential (primary) hypertension; F17.200 Nicotine dependence, unspecified, uncomplicated; Z79.899 Other long term (current) drug therapy
CPT/HCPCS: 36415; 80053; 81001; 84702; 85025; 87076; 87086; 87186; 99283; J3490; Q0162

== ENCOUNTER 2022-03-22 01:28 | Emergency (ER) | payer SELFPAY ==
[2022-03-22 02:08] VITALS: BP 151/104
[2022-03-22] MEDS ORDERED: ACETAMINOPHEN W/CODEINE 300-30 MG TAB PO ONE (08:20)
[2022-03-22] MEDS ORDERED: SULFAMETHOXAZOLE/TRIMETHOPRIM 800/160MG DS TAB PO ONE (08:20)
[2022-03-22] MEDS ORDERED: KETOROLAC 10 MG TAB PO ONE (08:20)
--- NOTE | 2022-03-22 08:47 | Emergency Department Report ---
- General Chief complaint: Skin/Abscess/Foreign Body Stated complaint: KNOT ON CHEST Time Seen by Provider: 03/22/22 08:19 Source: patient Mode of arrival: Ambulatory Limitations: No Limitations - History of Present Illness Initial comments: 41-year-old black female with no past medical history resents to the emergency department for evaluation of knot on her chest for the past 4 days. She states that she noticed the night and has been getting progressively larger, more red, and more painful. She denies fever or any drainage from area. She states that pain is 10 on a 10 point scale. MD complaint: other (Erythema, edema, tenderness) -: Gradual, days(s) (4) Location: chest Severity: severe Severity scale (0 -10): 10 Quality: aching Consistency: constant Associated symptoms: denies other symptoms Treatments Prior to Arrival: none - Related Data Previous Rx's Medication Instructions Recorded Last Taken Type Albuterol Mdi (or & Nicu Only) 2 puff IH QID PRN #1 inhalation 03/03/19 Unknown Rx [ProAir HFA Inhaler] Amoxicillin [Amoxicillin TAB] 875 mg PO BID #14 tablet 03/03/19 Unknown Rx guaiFENesin [Robitussin] 5 ml PO TID PRN #100 ml 03/03/19 Unknown Rx Amoxicillin/Potassium Clav 1 each PO BID #20 tablet 03/29/19 Unknown Rx [Augmentin 875-125 Tablet] Fluticasone [Flonase] 1 spray NS QDAY #1 bottle 03/29/19 Unknown Rx Benzonatate [Tessalon Perles] 100 mg PO Q8HR #10 capsule 05/19/21 Unknown Rx Dexamethasone [Decadron] 6 mg PO DAILY #5 tablet 05/19/21 Unknown Rx HYDROcodone/APAP 5-325 [[place] 1 each PO Q6HR PRN #14 tablet 05/19/21 Unknown Rx 5/325] Ondansetron [Zofran Odt] 4 mg PO Q8HR #10 tab.rapdis 05/19/21 Unknown Rx Fluconazole [Diflucan TAB] 200 mg PO QDAY #1 tablet 01/06/22 Unknown Rx Ibuprofen [Motrin 800 MG tab] 800 mg PO Q8HR PRN #30 tablet 01/06/22 Unknown Rx Ondansetron [Zofran Odt] 4 mg PO Q8HR #12 tab.rapdis 01/06/22 Unknown Rx cephALEXin [Keflex] 500 mg PO BID 7 Days #14 cap 01/06/22 Unknown Rx Acetaminophen/Codeine [Tylenol 1 tab PO Q6H PRN #12 tab 03/22/22 Unknown Rx /Codeine # 3 tab] Ketorolac [Toradol] 10 mg PO Q6H PRN #12 tab 03/22/22 Unknown Rx Sulfamethoxazole/Trimethoprim 1 each PO BID 7 Days #14 tab 03/22/22 Unknown Rx [Bactrim DS TAB] Allergies Allergy/AdvReac Type Severity Reaction Status Date / Time No Known Allergies Allergy Verified 12/19/20 03:59 Abscess Boil HPI - HPI Chief Complaint: Skin/Abscess/Foreign Body Stated Complaint: KNOT ON CHEST Time Seen by Provider: 03/22/22 08:19 Home Medications: Previous Rx's Medication Instructions Recorded Last Taken Type Albuterol Mdi (or & Nicu Only) 2 puff IH QID PRN #1 inhalation 03/03/19 Unknown Rx [ProAir HFA Inhaler] Amoxicillin [Amoxicillin TAB] 875 mg PO BID #14 tablet 03/03/19 Unknown Rx guaiFENesin [Robitussin] 5 ml PO TID PRN #100 ml 03/03/19 Unknown Rx Amoxicillin/Potassium Clav 1 each PO BID #20 tablet 03/29/19 Unknown Rx [Augmentin 875-125 Tablet] Fluticasone [Flonase] 1 spray NS QDAY #1 bottle 03/29/19 Unknown Rx Benzonatate [Tessalon Perles] 100 mg PO Q8HR #10 capsule 05/19/21 Unknown Rx Dexamethasone [Decadron] 6 mg PO DAILY #5 tablet 05/19/21 Unknown Rx HYDROcodone/APAP 5-325 [[place] 1 each PO Q6HR PRN #14 tablet 05/19/21 Unknown Rx 5/325] Ondansetron [Zofran Odt] 4 mg PO Q8HR #10 tab.rapdis 05/19/21 Unknown Rx Fluconazole [Diflucan TAB] 200 mg PO QDAY #1 tablet 01/06/22 Unknown Rx Ibuprofen [Motrin 800 MG tab] 800 mg PO Q8HR PRN #30 tablet 01/06/22 Unknown Rx Ondansetron [Zofran Odt] 4 mg PO Q8HR #12 tab.rapdis 01/06/22 Unknown Rx cephALEXin [Keflex] 500 mg PO BID 7 Days #14 cap 01/06/22 Unknown Rx Acetaminophen/Codeine [Tylenol 1 tab PO Q6H PRN #12 tab 03/22/22 Unknown Rx /Codeine # 3 tab] Ketorolac [Toradol] 10 mg PO Q6H PRN #12 tab 03/22/22 Unknown Rx Sulfamethoxazole/Trimethoprim 1 each PO BID 7 Days #14 tab 03/22/22 Unknown Rx [Bactrim DS TAB] Allergies/Adverse Reactions: Allergies Allergy/AdvReac Type Severity Reaction Status Date / Time No Known Allergies Allergy Verified 12/19/20 03:59 ED Review of Systems ROS: Stated complaint: KNOT ON CHEST Other details as noted in HPI Comment: All other systems reviewed and negative Constitutional: denies: chills, fever Respiratory: denies: shortness of breath Cardiovascular: chest pain (Painful to touch on the area where redness is). denies: palpitations Gastrointestinal: denies: abdominal pain, nausea, vomiting Genitourinary: denies: urgency, dysuria Musculoskeletal: denies: back pain Skin: denies: rash, lesions Neurological: denies: headache, weakness ED Past Medical Hx - Past Medical History Previous Medical History?: Yes Hx Hypertension: Yes (PT DENIES) Hx Asthma: No - Surgical History Past Surgical History?: Yes Additional Surgical History: ETOPIC PREGNANCIES BILATERAL - Social History Smoking Status: Never Smoker Substance Use Type: None - Medications Home Medications: Home Medications Medication Instructions Recorded Confirmed Last Taken Type Albuterol Mdi (or & Nicu Only) 2 puff IH QID PRN #1 inhalation 03/03/19 Unknown Rx [ProAir HFA Inhaler] Amoxicillin [Amoxicillin TAB] 875 mg PO BID #14 tablet 03/03/19 Unknown Rx guaiFENesin [Robitussin] 5 ml PO TID PRN #100 ml 03/03/19 Unknown Rx Amoxicillin/Potassium Clav 1 each PO BID #20 tablet 03/29/19 Unknown Rx [Augmentin 875-125 Tablet] Fluticasone [Flonase] 1 spray NS QDAY #1 bottle 03/29/19 Unknown Rx Benzonatate [Tessalon Perles] 100 mg PO Q8HR #10 capsule 05/19/21 Unknown Rx Dexamethasone [Decadron] 6 mg PO DAILY #5 tablet 05/19/21 Unknown Rx HYDROcodone/APAP 5-325 [[place] 1 each PO Q6HR PRN #14 tablet 05/19/21 Unknown Rx 5/325] Ondansetron [Zofran Odt] 4 mg PO Q8HR #10 tab.rapdis 05/19/21 Unknown Rx Fluconazole [Diflucan TAB] 200 mg PO QDAY #1 tablet 01/06/22 Unknown Rx Ibuprofen [Motrin 800 MG tab] 800 mg PO Q8HR PRN #30 tablet 01/06/22 Unknown Rx Ondansetron [Zofran Odt] 4 mg PO Q8HR #12 tab.rapdis 01/06/22 Unknown Rx cephALEXin [Keflex] 500 mg PO BID 7 Days #14 cap 01/06/22 Unknown Rx Acetaminophen/Codeine [Tylenol 1 tab PO Q6H PRN #12 tab 03/22/22 Unknown Rx /Codeine # 3 tab] Ketorolac [Toradol] 10 mg PO Q6H PRN #12 tab 03/22/22 Unknown Rx Sulfamethoxazole/Trimethoprim 1 each PO BID 7 Days #14 tab 03/22/22 Unknown Rx [Bactrim DS TAB] ED Physical Exam - General Limitations: No Limitations General appearance: alert, in no apparent distress - Head Head exam: Present: atraumatic, normocephalic - Eye Eye exam: Present: normal appearance. Absent: conjunctival injection, periorbital swelling, periorbital tenderness - Neck Neck exam: Present: normal inspection. Absent: tenderness, lymphadenopathy - Respiratory Respiratory exam: Present: normal lung sounds bilaterally, chest wall tenderness. Absent: respiratory distress, wheezes, rales, rhonchi, stridor - Cardiovascular Cardiovascular Exam: Present: regular rate, normal heart sounds - GI/Abdominal GI/Abdominal exam: Present: soft, normal bowel sounds. Absent: distended, tenderness, guarding, rebound, rigid - Extremities Exam Extremities exam: Present: normal inspection, full ROM, normal capillary refill. Absent: pedal edema, joint swelling, calf tenderness - Back Exam Back exam: Present: normal inspection. Absent: CVA tenderness (R), CVA tenderness (L) - Neurological Exam Neurological exam: Present: alert, oriented X3, normal gait - Psychiatric Psychiatric exam: Present: normal affect, normal mood - Skin Skin exam: Present: warm, dry, intact, erythema (Midsternal chest area) - Expanded Skin Exam Expanded 1 - Erythema, edema, and tenderness noted. Small knot noted on the scan. No drainage noted. ED Course Vital Signs 03/22/22 02:07 Temperature 98.3 F Pulse Rate 77 Respiratory 18 Rate Blood Pressure 151/104 O2 Sat by Pulse 100 Oximetry ED Medical Decision Making - Medical Decision Making 41-year-old black female with no past medical history resents to the emergency department for evaluation of knot on her chest for the past 4 days. She states that she noticed the night and has been getting progressively larger, more red, and more painful. She denies fever or any drainage from area. She states that pain is 10 on a 10 point scale. Physical assessment most consistent with small cysts with cellulitis. Patient be treated with 7-day course of Bactrim, Toradol, and Tylenol 3 to use as directed. She is advised to follow-up with dermatology for further evaluation and management. She is advised to return to the emergency department as needed Critical care attestation.: If time is entered above; I have spent that time in minutes in the direct care of this critically ill patient, excluding procedure time. ED Disposition Clinical Impression: Cellulitis Qualifiers: Site of cellulitis: trunk Site of cellulitis of trunk: chest wall Qualified Code(s): L03.313 - Cellulitis of chest wall Disposition: HOME / SELF CARE / HOMELESS Is pt being admited?: No Does the pt Need Aspirin: No Condition: Stable Instructions: Cellulitis, Adult, [id number] Additional Instructions: Take medications as prescribed. Follow-up with your primary care provider if no improvement or worsening symptoms. Return to the emergency department as needed. Prescriptions: Sulfamethoxazole/Trimethoprim [Bactrim DS TAB] 1 each PO BID 7 Days #14 tab Ketorolac [Toradol] 10 mg PO Q6H PRN #12 tab PRN Reason: Pain Acetaminophen/Codeine [Tylenol /Codeine # 3 tab] 1 tab PO Q6H PRN #12 tab PRN Reason: Pain, Moderate (4-6) Referrals: CARBUCCIA,CHIARA, MD [Staff Physician] - 3-5 Days DIONTE ARCE MD [Staff Physician] - 3-5 Days Forms: Work/School Release Form(ED) Time of Disposition: 08:47
== END 2022-03-22 09:37 | disposition home or self-care (01) ==
LOC: ED 01:28
DX: L03.313 Cellulitis of chest wall (principal); Z53.21 Procedure and treatment not carried out due to patient leaving prior to being seen by health care provider; I10 Essential (primary) hypertension; Z98.890 Other specified postprocedural states; Z79.899 Other long term (current) drug therapy
CPT/HCPCS: 99282